=== PATIENT | female | born 2000 | race African-American/Black ===

== ENCOUNTER 2022-01-01 05:12 | Inpatient (IN) | payer MEDICAID, OTHER ==
[2021-12-30 13:06] LABS: Hemoglobin 10.4 g/dL (12.0-15.5); Mean Corpuscular Hemoglobin 29.1 pg (27.0-33.0); Mean Corpuscular Volume 85.5 fl (81.6-98.3); Mean Platelet Volume 10.6 fl (7.4-10.4); Platelet Count 224 10x3/uL (150-450); RBC Distribution Width 12.2 % (11.5-14.5); Red Blood Cell (RBC) Count 3.58 10x6/uL (3.90-5.03); White Blood Cell (WBC) Count 9.1 10x3/uL (3.5-10.5)
[2021-12-30 13:39] LABS: Syphilis Antibody Nonreactive (Nonreactive); Syphilis Antibody Index 0.04 S/CO (<1.00 Non-Reactive)
[2021-12-30 13:40] LABS: Hep B Surf Ag Non-Reactive S/CO (NonReactive)
[2021-12-30 13:57] LABS: HBSAg Index 0.22 S/CO (0-0.99)
[2021-12-30 21:20] LABS: SARS-CoV-2 PCR by NAA Not Detected (NotDetected)
[2022-01-01] MEDS ORDERED: ceFAZolin 2 GM/Dextrose 50 ML 2 GM in Premix Bag 1 BAG IVPB SCH (06:28)
[2022-01-01] MEDS ORDERED: hydrALAZINE 20 MG/ML VIAL SLOW IVP PRN ×2 (06:28→10:11)
[2022-01-01] MEDS ORDERED: Ondansetron PF 4 MG/2 ML Vial IVP PRN ×3 (06:28→10:11)
[2022-01-01] MEDS ORDERED: Bicitra 30 ML UDCUP PO PRN (06:28)
[2022-01-01] MEDS ORDERED: Lactated Ringer's 1,000 ML IV SCH (06:28)
[2022-01-01] MEDS ORDERED: Promethazine HCl 25 MG/ML VIAL IM PRN ×3 (06:28→10:11)
[2022-01-01] MEDS ORDERED: Famotidine/PF 20 mg/2ml Vial SLOW IVP PRN (06:28)
[2022-01-01 06:30] VITALS: BMI 33.7
[2022-01-01] MEDS ORDERED: Morphine PF 10 MG/10 ML VIAL ONE (07:10)
[2022-01-01] MEDS ORDERED: Oxytocin 10 UNITS/ML VIAL ONE (07:10)
[2022-01-01] MEDS ORDERED: ePHEDrine Sulfate 50 MG/10 ML VIAL ONE (07:11)
[2022-01-01] MEDS ORDERED: Ketorolac Tromethamine 30 MG/ML VIAL ONE (07:12)
[2022-01-01] MEDS ORDERED: Ondansetron PF 4 MG/2 ML Vial ONE ×2 (07:12→08:14)
[2022-01-01] MEDS ORDERED: Glycopyrrolate 0.2 MG/ML 5 ML SYRINGE ONE (07:12)
[2022-01-01] MEDS ORDERED: PHENYLEPHRINE-NS 100 MCG/ML 10 ML SYRINGE ONE (07:12)
[2022-01-01] MEDS ORDERED: Phenylephrine 40 MG/NS 250 ML 250 ML ONE (07:12)
[2022-01-01] MEDS ORDERED: Dexamethasone 4 mg/ml Vial ONE (07:12)
[2022-01-01] MEDS ORDERED: Midazolam HCl 2 mg/2 ml Vial ONE (08:12)
[2022-01-01] MEDS ORDERED: Meperidine HCl/PF 25 MG/ML VIAL ONE (08:15)
[2022-01-01] MEDS ORDERED: Ketorolac Tromethamine 30 MG/ML VIAL IVP PRN (08:43)
[2022-01-01] MEDS ORDERED: Fentanyl 100 MCG/2 ML VIAL SLOW IVP PRN (08:43)
[2022-01-01] MEDS ORDERED: Meperidine HCl/PF 25 MG/ML VIAL SLOW IVP PRN ×2 (08:43→12:35)
[2022-01-01] MEDS ORDERED: Naloxone HCl 0.4 mg/ml Vial IVP PRN ×2 (08:43)
[2022-01-01] MEDS ORDERED: diphenhydrAMINE 50 MG/ML VIAL IVP PRN (08:43)
[2022-01-01] MEDS ORDERED: Moisturizing Cream (Eucerin) 113 GM JAR TOP PRN (08:43)
[2022-01-01] MEDS ORDERED: Promethazine HCl 25 MG SUPP PR PRN (08:43)
[2022-01-01] MEDS ORDERED: Naloxone HCl 0.4 mg/ml Vial IV PRN (08:43)
[2022-01-01] MEDS ORDERED: Ondansetron HCl/PF 4 MG/2 ML Vial IVP PRN (08:43)
[2022-01-01] MEDS ORDERED: Ketorolac Tromethamine 30 MG/ML VIAL IVP SCH (08:45)
[2022-01-01] MEDS ORDERED: Communication Order-Pharmacy FS SCH (08:45)
[2022-01-01] MEDS ORDERED: Bisacodyl 10 MG SUPP PR PRN (10:11)
[2022-01-01] MEDS ORDERED: Milk Of Magnesia 30 ML UDCUP PO PRN (10:11)
[2022-01-01] MEDS ORDERED: NS w/ Oxytocin 30 units 500 ML IV SCH (10:11)
[2022-01-01] MEDS ORDERED: Prenatal Vitamin 1 TAB PO SCH (10:30)
[2022-01-01] MEDS ORDERED: Ferrous Sulfate 325 MG TAB PO SCH (11:00)
[2022-01-01] MEDS ORDERED: Docusate 100 MG CAP PO SCH (11:00)
[2022-01-01] MEDS: Ketorolac Tromethamine 30 MG/ML VIAL IVP SCH ×2 (15:31→20:35)
[2022-01-01] MEDS: Docusate 100 MG CAP PO SCH (20:35)
[2022-01-01] MEDS: diphenhydrAMINE 25 MG CAP PO PRN (20:35)
[2022-01-01] MEDS: HYDROcodone/Acetaminophen 5/325 mg Tablet PO PRN (20:47)
[2022-01-01] MEDS: Ferrous Sulfate 325 MG TAB PO SCH (22:25)
[2022-01-02] MEDS: diphenhydrAMINE 25 MG CAP PO PRN (00:47)
[2022-01-02] MEDS: HYDROcodone/Acetaminophen 5/325 mg Tablet PO PRN ×6 (00:47→20:26)
[2022-01-02 05:24] LABS: Hemoglobin 9.3 g/dL (12.0-15.5); Mean Corpuscular HGB CONC 34.3 g/dL (32.0-36.0); Mean Corpuscular Hemoglobin 28.8 pg (27.0-33.0); Mean Corpuscular Volume 83.9 fl (81.6-98.3); Mean Platelet Volume 10.1 fl (7.4-10.4); Platelet Count 197 10x3/uL (150-450); RBC Distribution Width 12.3 % (11.5-14.5); Red Blood Cell (RBC) Count 3.23 10x6/uL (3.90-5.03); White Blood Cell (WBC) Count 13.6 10x3/uL (3.5-10.5)
[2022-01-02] MEDS: Ketorolac Tromethamine 30 MG/ML VIAL IVP SCH (05:48)
[2022-01-02] MEDS: Simethicone Chewable 80 MG TAB PO PRN ×3 (07:52→20:28)
[2022-01-02] MEDS: Docusate 100 MG CAP PO SCH ×2 (07:52→21:32)
[2022-01-02] MEDS: Prenatal Vitamin 1 TAB PO SCH (07:52)
[2022-01-02] MEDS: Ferrous Sulfate 325 MG TAB PO SCH ×2 (07:52→21:32)
[2022-01-02] MEDS ORDERED: Boostrix 0.5 ML (Tdap) VIAL IM ONE (10:11)
[2022-01-02] MEDS: Ibuprofen 800 MG TAB PO SCH ×2 (13:46→21:32)
[2022-01-03] MEDS: Simethicone Chewable 80 MG TAB PO PRN ×2 (04:46→09:06)
[2022-01-03] MEDS: HYDROcodone/Acetaminophen 5/325 mg Tablet PO PRN ×4 (04:46→20:59)
[2022-01-03] MEDS: Ibuprofen 800 MG TAB PO SCH ×3 (06:04→22:35)
[2022-01-03] MEDS: Ferrous Sulfate 325 MG TAB PO SCH ×2 (09:06→20:59)
[2022-01-03] MEDS: Prenatal Vitamin 1 TAB PO SCH (09:06)
[2022-01-03] MEDS: Docusate 100 MG CAP PO SCH ×2 (09:06→20:59)
[2022-01-04] MEDS: HYDROcodone/Acetaminophen 5/325 mg Tablet PO PRN ×3 (00:18→13:49)
[2022-01-04] MEDS: Ibuprofen 800 MG TAB PO SCH ×2 (05:41→13:48)
[2022-01-04] MEDS: Docusate 100 MG CAP PO SCH ×2 (11:42→13:49)
[2022-01-04] MEDS: Prenatal Vitamin 1 TAB PO SCH ×2 (11:42→13:50)
[2022-01-04] MEDS: Ferrous Sulfate 325 MG TAB PO SCH (11:42)
[2022-01-04 12:07] VITALS: BP 119/58; TEMP 98.2
== END 2022-01-04 15:30 | disposition home or self-care (01) | DRG 788 ==
LOC: CSHLD 05:12 → CSHPP 10:45
PROVIDERS: ADMIT Family Medicine; ATTEND Family Medicine
PROC: 10D00Z1 Extraction of Products of Conception, Low, Open Approach (ICD-10-PCS; principal; 2022-01-01)
DX: O34.211 Maternal care for low transverse scar from previous cesarean delivery (principal); O36.5930 Maternal care for other known or suspected poor fetal growth, third trimester, not applicable or unspecified; Z37.0 Single live birth; Z3A.37 37 weeks gestation of pregnancy; Z20.822 Contact with and (suspected) exposure to COVID-19; Q51.818 Other congenital malformations of uterus
CPT/HCPCS: 36415; 51702; 85027; 86780; 86850; 86900; 86901; 87340; J0690; J1100; J1200; J1885; J2175; J2250; J2274; J2405; J2590; U0003; U0005